=== PATIENT | female | born 1970 | race Caucasian/White ===

== ENCOUNTER 2017-09-04 11:50 | Emergency (ER) | payer OTHER ==
[2017-09-04 12:18] LABS: Appearance,Urine Cloudy (Clear); Bacteria,Urine Rare /hpf; Bilirubin,Urine Negative (Negative); Blood,Urine Negative (Negative); Color,Urine Yellow; Glucose,Urine (UA) Negative (Negative); Hyaline Casts,Urine 2 /lpf (0-2); Ketones,Urine Negative (Negative); Leukocyte Esterase,Urine Moderate (Negative); Mucus,Urine Few /hpf; Nitrite,Urine Negative (Negative); PH, Urine 5.5 (5.0-8.0); Protein,Urine Negative (Negative); RBC,Urine 1 /hpf (0-5); Specific Gravity,Urine 1.011 (1.001-1.035); Squamous Epithelial Cell,Urine 6 /hpf (0-4); Urobilinogen,Urine <2.0 mg/dL (<2.0); WBC,Urine 2 /hpf (0-5)
[2017-09-04] MEDS ORDERED: AZITHROMYCIN 500 MG TAB PO STA (13:43)
[2017-09-04] MEDS ORDERED: cefTRIAXone 250 MG VIAL IM STA (13:43)
[2017-09-04] MEDS ORDERED: metroNIDAZOLE 500 MG TAB PO STA (13:43)
--- NOTE | 2017-09-04 13:44 | ED ---
Female Urogenital HPI - General Chief complaint: Urogenital Stated complaint: Female Time Seen by Provider: 09/04/17 12:56 Source: patient, RN notes reviewed, old records reviewed Mode of arrival: ambulatory Limitations: no limitations - History of Present Illness Initial comments: This patient is a 46-year-old female presents to the emergency department today to complete of concern for STD. She was informed by her partner that she could be exposed to an STD. Patient states that she has had no significant discharge or rashes. She reports that her last menstrual period was the beginning of August. She denies any pain with urination.Patient denies any of [place] pain, nausea, vomiting, chest pain, shortness of breath, headaches, fevers, chills. Last Menstrual Period: 08/07/17 - Related Data Home Medications Medication Instructions Recorded Confirmed buPROPion [Wellbutrin] 150 mg PO DAILY 12/14/13 09/04/17 ALPRAZolam [Xanax] 0.25 mg PO TID PRN 05/09/15 09/04/17 DULoxetine HCL [Cymbalta] 60 mg PO DAILY 05/09/15 09/04/17 Ergocalciferol [Vitamin D2] 50,000 unit PO Q14D 09/04/17 09/04/17 Ferrous Sulfate [Iron (65 MG 325 mg PO TID 09/04/17 09/04/17 Elemental)] Ibuprofen [Ibuprofen] 800 mg PO BID PRN 09/04/17 09/04/17 Oxybutynin Chloride 5 mg PO BID 09/04/17 09/04/17 Previous Rx's Medication Instructions Recorded HYDROcodone/APAP 7.5-325MG [[place] 1 tab PO Q6HR PRN #20 tab 12/14/13 7.5] Allergies Allergy/AdvReac Type Severity Reaction Status Date / Time No Known Allergies Allergy Verified 09/04/17 11:54 Review of Systems ROS Statement: Those systems with pertinent positive or pertinent negative responses have been documented in the HPI. ROS Other: All systems not noted in ROS Statement are negative. Past Medical History Past Medical History: No Reported History History of Any Multi-Drug Resistant Organisms: None Reported Past Surgical History: Tubal Ligation Past Psychological History: Depression Smoking Status: Current every day smoker Past Alcohol Use History: Occasional Past Drug Use History: Marijuana General Exam - General Exam Comments Initial Comments: 46-year-old female.Very anxious and distraught. Limitations: no limitations General appearance: alert, in no apparent distress Head exam: Present: atraumatic, normocephalic, normal inspection Eye exam: Present: normal appearance, PERRL, EOMI. Absent: scleral icterus, conjunctival injection, periorbital swelling ENT exam: Present: normal exam, mucous membranes moist Neck exam: Present: normal inspection. Absent: tenderness, meningismus, lymphadenopathy Respiratory exam: Present: normal lung sounds bilaterally. Absent: respiratory distress, wheezes, rales, rhonchi, stridor Cardiovascular Exam: Present: regular rate, normal rhythm, normal heart sounds. Absent: systolic murmur, diastolic murmur, rubs, gallop, clicks GI/Abdominal exam: Present: soft, normal bowel sounds. Absent: distended, tenderness, guarding, rebound, rigid External exam: Present: normal external exam Speculum exam: Present: normal speculum exam. Absent: erythema, vaginal discharge, cervical discharge, vaginal bleeding By manual exam: Present: normal by manual exam. Absent: cervical motion tenderness, adnexal tenderness Extremities exam: Present: normal inspection, full ROM, normal capillary refill. Absent: tenderness, pedal edema, joint swelling, calf tenderness Neurological exam: Present: alert, oriented X3, CN II-XII intact Psychiatric exam: Present: normal affect, normal mood Skin exam: Present: warm, dry, intact, normal color. Absent: rash Course Vital Signs 09/04/17 09/04/17 11:54 14:19 Temperature 99.6 F 98.2 F Pulse Rate 104 H 65 Respiratory 20 16 Rate Blood Pressure 178/91 125/78 O2 Sat by Pulse 100 Oximetry Medical Decision Making - Medical Decision Making This patient is a 46-year-old female presents to the emergency department today to complete of concern for STD. She was informed by her partner that she could be exposed to an STD. Patient states that she has had no significant discharge or rashes. She reports that her last menstrual period was the beginning of August.You should have a normal pelvic exam. She has no rashes or other concern for STD. Discussed we will do swabs and cultures. Will treat the patient for chlamydia gonorrhea trichomonas. Patient was given rocephin, azithromycin and Flagyl. Discuss follow up with gynocologist. All questions answered and return parameters were discussed. - Lab Data Lab Results 09/04/17 Range/Units 11:58 Urine Color Yellow Urine Appearance Cloudy H (Clear) Urine pH 5.5 (5.0-8.0) Ur Specific [place] 1.011 (1.001-1.035) Urine Protein Negative (Negative) Urine Glucose (UA) Negative (Negative) Urine Ketones Negative (Negative) Urine Blood Negative (Negative) Urine Nitrite Negative (Negative) Urine Bilirubin Negative (Negative) Urine Urobilinogen <2.0 (<2.0) mg/dL Ur Leukocyte Esterase Moderate H (Negative) Urine RBC 1 (0-5) /hpf Urine WBC 2 (0-5) /hpf Ur Squamous Epith Cells 6 H (0-4) /hpf Urine Bacteria Rare H (None) /hpf Hyaline Casts 2 (0-2) /lpf Urine Mucus Few H (None) /hpf Disposition Clinical Impression: STD exposure Disposition: HOME SELF-CARE Condition: Good Instructions: Sexually Transmitted Diseases (ED) Additional Instructions: Patient advised to rest. Inform all sexual partners of possible exposure. Patient should return to the emergency department if any alarming signs or symptoms occur. We will follow up with fevers any positive culture results. Referrals: Rosas John MD [Primary Care Provider] - 1-2 days Time of Disposition: 13:43
[2017-09-04 14:20] VITALS: BP 125/78; PULSE 65; RESP 16; TEMP 98.2
--- NOTE | 2017-09-05 05:37 | CDI ---
Dear Vani PA: Please do addendum to ED report for HPI , Physical exam and MDM. Thank you, Fernanda Gore Assistant Analyst If you have any question, Please contact grain merchandising manager at [phone] [facility]
[2017-09-05 14:36] LABS: C. trachomatis,PCR Negative (Neg,Equiv); Chlamydia trachomatis Source Urine; N. gonorrhoeae,PCR Negative (Neg,Equiv); Neisseria Source Urine
== END 2017-09-04 14:19 | disposition home or self-care (01) ==
LOC: EC 11:50
DX: Z20.2 Contact with and (suspected) exposure to infections with a predominantly sexual mode of transmission (principal); F32.9 Major depressive disorder, single episode, unspecified; F17.200 Nicotine dependence, unspecified, uncomplicated; Z79.899 Other long term (current) drug therapy
CPT/HCPCS: 81001; 87491; 87591; 87661; 99284; 96372; J0696

== ENCOUNTER 2017-10-17 03:05 | Emergency (ER) | payer OTHER ==
[2017-10-17 03:14] VITALS: BP 150/80; PULSE 119; RESP 22; TEMP 97.5
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
--- NOTE | 2017-10-17 04:15 | CT ---
EXAM: CT Head Without Intravenous Contrast CLINICAL HISTORY: : Pain TECHNIQUE: Axial computed tomography images of the head/brain without intravenous contrast. CTDI is 60.3 mGy and DLP is 1126.5 mGy-cm. This CT exam was performed using one or more of the following dose reduction techniques: automated exposure control, adjustment of the mA and/or kV according to patient size, and/or use of iterative reconstruction technique. COMPARISON: No relevant prior studies available. FINDINGS: Brain: Unremarkable. No hemorrhage. No significant white matter disease. No edema. Ventricles: Unremarkable. No ventriculomegaly. Bones/joints: Unremarkable. No acute fracture. Soft tissues: Unremarkable. Sinuses: Minimal mucosal thickening noted in ethmoid air cells. Mastoid air cells: Unremarkable as visualized. No mastoid effusion. IMPRESSION: No focal intracranial lesion. Minimal mucosal thickening in ethmoid air cells bilaterally EXAM: CT Cervical Spine Without Intravenous Contrast CLINICAL HISTORY: Pain TECHNIQUE: Axial computed tomography images of the cervical spine without intravenous contrast. CTDI is 19.3 mGy and DLP is 387.5 mGy-cm. This CT exam was performed using one or more of the following dose reduction techniques: automated exposure control, adjustment of the mA and/or kV according to patient size, and/or use of iterative reconstruction technique. Coronal and sagittal reformatted images were created and reviewed. COMPARISON: No relevant prior studies available. FINDINGS: Vertebrae: Unremarkable. No acute fracture. Discs/spinal canal/neural foramina: No acute findings. Mild degenerative changes with disc space narrowing at C45 C5-6-6 7 Soft tissues: Unremarkable. Lung apices: Unremarkable as visualized. IMPRESSION: Mild degenerative changes no evidence for acute fracture or malalignment
== END 2017-10-17 04:47 | disposition home or self-care (01) ==
LOC: EC 03:05
DX: S01.01XA Laceration without foreign body of scalp, initial encounter (principal); F10.129 Alcohol abuse with intoxication, unspecified; R41.82 Altered mental status, unspecified; F41.9 Anxiety disorder, unspecified; R45.1 Restlessness and agitation; M54.2 Cervicalgia; F32.9 Major depressive disorder, single episode, unspecified; F17.200 Nicotine dependence, unspecified, uncomplicated; Z79.899 Other long term (current) drug therapy; Y90.6 Blood alcohol level of 120-199 mg/100 ml; W03.XXXA Other fall on same level due to collision with another person, initial encounter; Y93.89 Activity, other specified; Y92.009 Unspecified place in unspecified non-institutional (private) residence as the place of occurrence of the external cause
CPT/HCPCS: 12002; 70450; 72125; 82075; 99284

== ENCOUNTER → 2018-01-27 | Outpatient (CLI) | payer OTHER ==
--- NOTE | 2018-01-27 09:48 | MR ---
EXAMINATION TYPE: MR lumbar spine wo con DATE OF EXAM: 01/27/2018 COMPARISON: NONE HISTORY: Low back pain TECHNIQUE: T1 and T2 axial and sagittal images of the lumbar spine are submitted. FINDINGS: There is no abnormal signal seen within the visualized spinal cord or paraspinal soft tissu es. At L1-2 there is hypertrophic change of the facets. No disc herniation or canal stenosis. No foramina l encroachment. At L2-3 there is set arthropathy and hypertrophic changes of the ligamentum flavum. Mild circumferent ial disc bulging. No Canal stenosis. Mild bilateral foraminal encroachment. At L3-4 there is no disc herniation or canal stenosis. Mild hypertrophic change of the facets. At L4-5 there is grade 1 anterolisthesis with central disc protrusion resulting in moderate central s tenosis. There is severe facet arthropathy and mild to moderate bilateral foraminal encroachment. At L5-S1 there is no disc herniation or canal stenosis. There is facet arthropathy. No foraminal encr oachment. IMPRESSION: 1. Degenerative disc disease with severe facet arthropathy L4-L5 resulting in grade 1 anterolisthesis . Central disc protrusion contributes to moderate canal stenosis and mild bilateral foraminal encroac hment.
== END | disposition home or self-care (01) ==
LOC: RADMRIMAIN 08:55
PROVIDERS: ATTEND Psychiatry & Neurology Neurology
DX: M99.73 Connective tissue and disc stenosis of intervertebral foramina of lumbar region (principal); M43.16 Spondylolisthesis, lumbar region; M51.26 Other intervertebral disc displacement, lumbar region; M51.36 Other intervertebral disc degeneration, lumbar region; M46.96 Unspecified inflammatory spondylopathy, lumbar region
CPT/HCPCS: 72148

== ENCOUNTER → 2024-03-18 | Outpatient (CLI) | payer OTHER ==
--- NOTE | 2024-03-22 08:50 | MM ---
Reason for Exam: Screening (asymptomatic). Baseline mammogram. Patient History: Menarche at age 17. First Full-Term at age 19. Postmenopausal. Risk Values: Gisselle 5 year model risk: 0.7%. NCI Lifetime model risk: 5.8%. Prior Study Comparison: Patient's first Mammogram. Tissue Density: There are scattered areas of fibroglandular density. Findings: Analyzed By CAD. Right breast: There is no suspicious group of microcalcifications or new suspicious mass. Left breast: There is no suspicious group of microcalcifications or new suspicious mass. Overall Assessment: Negative, BI-RAD 1 Management: Screening Mammogram of both breasts in [address] [facility] will attempt to contact patient to return for supplemental views and ultrasound if indicated. Patient should continue monthly self-breast exams. A clinical breast exam by your physician is recommended on an annual basis. This exam should not preclude additional follow-up of suspicious palpable abnormalities. Note on Gisselle scores and lifetime risk: 1. A Gisselle score greater than 3% is considered moderate risk. If this is the case, consider specialist referral to assess eligibility for a risk reducing agent. 2. If overall lifetime risk for the development of breast cancer is 20% or higher, the patient may qualify for future screening with alternating mammogram and breast MRI. [facility], , 03/22/2024 8:46 AM. Electronically signed and approved by: Jason Grimaldo DO
== END | disposition home or self-care (01) ==
LOC: RADMAMWWP 11:26
PROVIDERS: ATTEND Family Medicine
CPT/HCPCS: 77063; 77067